=== PATIENT | male | born 1955 | race Caucasian/White ===

== ENCOUNTER → 2018-03-08 | Day surgery (SDC) | payer MEDICARE ==
[~2018-03-08] MED LIST: LIDOCAINE 1% PF 2 ML VIAL. ID; MORPHINE SULFATE 2 MG/ML DISP.SYRIN. IV; ONDANSETRON PF 4 MG/2 ML VIAL. IV; PROCHLORPERAZINE 10 MG/2 ML VIAL. IV; PROPOFOL 40 ML IV; fentaNYL PF VIAL 100 MCG/2 ML VIAL IV
[2018-03-08] MEDS: IV RINGERS,LACTATED 1000ML 1,000 ML IV (11:35)
== END ==
LOC: ENDOS 10:39
DX: D12.2 Benign neoplasm of ascending colon (principal); D12.5 Benign neoplasm of sigmoid colon; K62.1 Rectal polyp; K64.0 First degree hemorrhoids; K57.30 Diverticulosis of large intestine without perforation or abscess without bleeding; E11.9 Type 2 diabetes mellitus without complications; I10 Essential (primary) hypertension; F31.9 Bipolar disorder, unspecified; F17.210 Nicotine dependence, cigarettes, uncomplicated; Z79.899 Other long term (current) drug therapy; Z98.890 Other specified postprocedural states; Z98.52 Vasectomy status; Z86.010 Personal history of colon polyps; Z83.3 Family history of diabetes mellitus; Z80.0 Family history of malignant neoplasm of digestive organs
CPT/HCPCS: 45380; 45385; 88305; J2704

== ENCOUNTER → 2020-11-19 | Outpatient (CLI) | payer MEDICARE, OTHER ==
[2018-03-08 12:40] VITALS: BP 125/88
[~2020-11-19] MED LIST changes: +CLON1TAB PO; -LIDOCAINE 1% PF 2 ML VIAL. ID; -MORPHINE SULFATE 2 MG/ML DISP.SYRIN. IV; -ONDANSETRON PF 4 MG/2 ML VIAL. IV; -PROCHLORPERAZINE 10 MG/2 ML VIAL. IV; -PROPOFOL 40 ML IV; +TRAZ-118 PO; +[UNRECOGNIZED DRUG - OTHER]; +blood pressure; -fentaNYL PF VIAL 100 MCG/2 ML VIAL IV
--- NOTE | 2020-11-19 15:24 | RAD ---
US DPLX CAROTID BILAT History: TIA/DIZZINESS Multiple grayscale, color, and duplex spectral analysis waveform sonographic images were acquired of the carotid, subclavian, and vertebral arteries. Comparison: None Findings: RIGHT SIDE: Peak systolic flow velocity of the distal CCA is 107 cm/sec. Peak systolic flow velocity of the ICA is 119 cm/sec. The ICA/CCA ratio is 1.1. Peak end diastolic flow velocity of the ICA is 44 cm/sec. The peak systolic velocity of the ECA is 118 cm/sec. LEFT SIDE: Peak systolic flow velocity of the distal CCA is 115 cm/sec. Peak systolic flow velocity of the ICA is 110 cm/sec. The ICA/CCA ratio is 1.0. Peak end diastolic flow velocity of the ICA is 44 cm/sec. Peak systolic flow velocity of the ECA is 131 cm/sec. Vertebral arteries: Bilateral vertebral arteries demonstrate antegrade flow. Impression: There is no evidence of a hemodynamically significant stenosis. PQRS Compliance Statement - Stenosis calculations for carotid ultrasound studies are derived from elina idated velocity criteria which are known to correlate with the NASCET methodology. Electronically signed by: Rome Pagan MD (11/19/2020 3:22 PM) [id number]
== END ==
LOC: US 13:54
PROVIDERS: ATTEND Family Medicine
DX: G45.9 Transient cerebral ischemic attack, unspecified (principal)
CPT/HCPCS: 93880

== ENCOUNTER → 2021-03-21 | Outpatient (CLI) | payer MEDICARE, OTHER ==
[2018-03-08 12:40] VITALS: BP 125/88
--- NOTE | 2021-03-21 12:14 | CARD ---
MR#: [id number] Date of Study: 03/21/2021 Ordering Physician: CRUZ PHAM, Referring Physician: CRUZ PHAM Tech: Rodney Galindo [facility] APPROVED REPORT EXAM: Two-dimensional and M-mode echocardiogram with Doppler and color Doppler. Other Information Quality : AverageHR: 72bpm Rhythm : NSRTechnically limited study due to body habitus and smoking. INDICATION Peripheral Edema RISK FACTORS Hypertension Obesity Hyperlipidemia Diabetes Smoking 2D DIMENSIONS Left Atrium(2D)4.1 (1.6-4.0cm)IVSd1.3 (0.7-1.1cm) Aortic Root(2D)3.3 (2.0-3.7cm)LVDd4.9 (3.9-5.9cm) LVOT Diameter2.0 (1.8-2.4cm)PWd1.3 (0.7-1.1cm) LVDs2.7 (2.5-4.0cm)FS (%) 44.2 % SV85.1 ml Aortic Valve AoV Peak Ortiz.147.4cm/sAoV VTI22.0cm AO Peak GR.8.7mmHgLVOT Peak Ortiz.117.0cm/s AO Mean GR.4mmHgAVA (VMAX)2.61cm2 Mitral Valve MV E Uvlwdzne346.8cm/sMV E Peak Gr.3mmHg MV DECEL [id number] A Pfoevmrh201.3cm/s MV E Mean Gr.2mmHgE/A Ratio0.9 Pulmonary Valve PV Peak Sjqkfmto693.3cm/s Tricuspid Valve TR P. Tbjdmoxc233gd/sTR Peak Gr.12mmHg Pulmonary Vein S1 Leymsvwy85.9cm/sD2 Euisszvs26.9cm/s LEFT VENTRICLE The left ventricle is normal size. There is mild concentric left ventricular hypertrophy. The left ve ntricular systolic function is normal. LV ejection fraction is 55 to 60%. There is normal LV segment al wall motion. Transmitral Doppler flow pattern is Grade I-abnormal relaxation pattern. No left vent ricle thrombus noted on this study. There is no ventricular septal defect visualized. There is no lef t ventricular aneurysm. There is no mass noted in the left ventricle. RIGHT VENTRICLE The right ventricle is normal size. There is normal right ventricular wall thickness. The right ventr icular systolic function is normal. ATRIA The left atrium size is normal. The right atrium size is normal. The interatrial septum is intact wit h no evidence for an atrial septal defect or patent foramen ovale as noted on 2-D or Doppler imaging. AORTIC VALVE The aortic valve is normal in structure and function. Doppler and Color Flow revealed no significant aortic regurgitation. There is no significant aortic valvular stenosis. There is no aortic valvular v egetation. MITRAL VALVE The mitral valve is normal in structure and function. There is no evidence of mitral valve prolapse. There is no mitral valve stenosis. Doppler and Color Flow revealed trace mitral valve regurgitation. TRICUSPID VALVE The tricuspid valve is normal in structure and function. Doppler and Color Flow revealed trace tricus pid regurgitation. There is no tricuspid valve prolapse or vegetation. There is no tricuspid valve st enosis. PULMONIC VALVE The pulmonary valve is normal in structure and function. Doppler and Color Flow revealed no pulmonic valvular regurgitation. There is no pulmonic valvular stenosis. GREAT VESSELS The aortic root is normal in size. The ascending aorta is normal in size. The pulmonary artery is nor mal. The IVC is normal in size and collapses >50% with inspiration. PERICARDIAL EFFUSION There is no pleural effusion. There is no evidence of significant pericardial effusion. Critical Notification Critical Value: No <Conclusion> The left ventricle is normal size. The left ventricular systolic function is normal. LV ejection fraction is 55 to 60%. There is mild concentric left ventricular hypertrophy. Doppler and Color Flow revealed no significant aortic regurgitation. There is no significant aortic valvular stenosis. Doppler and Color Flow revealed trace mitral valve regurgitation. Doppler and Color Flow revealed trace tricuspid regurgitation. Signed by : Sky Edwards MD Electronically Approved : 03/21/2021 12:14:10
== END ==
LOC: ECHO 10:51
PROVIDERS: ATTEND Family Medicine
DX: I51.7 Cardiomegaly (principal); R60.0 Localized edema
CPT/HCPCS: 93306

== ENCOUNTER → 2021-04-28 | Outpatient (CLI) | payer MEDICARE ==
[2018-03-08 12:40] VITALS: BP 125/88
--- NOTE | 2021-04-28 12:45 | RAD ---
EXAM: Abdomen sonogram. HISTORY: Distention. TECHNIQUE: Sonographic imaging of the abdomen was performed. COMPARISON: None. FINDINGS: The liver is enlarged. There is hepatic steatosis. No focal hepatic lesion is seen. The gal lbladder is unremarkable. The common bile duct is normal in caliber. The kidneys, pancreas, and splee n are unremarkable. The aorta and inferior vena cava are partially obscured due to bowel gas. IMPRESSION: 1. Hepatomegaly and hepatic steatosis. 2. No acute sonographic finding. Electronically signed by: Preethi Dean MD (04/28/2021 12:42 PM) [id number]
== END ==
LOC: US 10:55
PROVIDERS: ATTEND Family Medicine
DX: K76.0 Fatty (change of) liver, not elsewhere classified (principal); R60.0 Localized edema
CPT/HCPCS: 76700